=== PATIENT | female | born 1980 | race Caucasian/White ===

== ENCOUNTER 2017-12-14 21:37 | Emergency (ER) | END 2017-12-15 06:28 | disposition home or self-care (01) ==

== ENCOUNTER 2018-11-10 08:19 | Emergency (ER) | payer OTHER ==
[~2018-11-10] VITALS: Ht 162.6 cm; Wt 135.2 kg
[~2018-11-10 08:19] MED LIST: DICL50TA11 PO; GLIP10TA14 PO; HYDR-2059 PO; HYDR25TA6 PO; IBUP800T48 PO; LISI20TA PO; MTF1000T PO; NITR-58 PO; OMEP20CA9 PO; OXYB5TAB7 PO; POLY17PO6 PO; TRAM50TA2 PO; ZOC10 PO
[2018-11-10 08:20] VITALS: Ht 162.6 cm; Wt 135.2 kg
[2018-11-10] MEDS ORDERED: KETOROLAC 30 MG INJ IV STA (09:29)
[2018-11-10] MEDS ORDERED: ONDANSETRON 4 MG INJ IV STA (09:29)
[2018-11-10] MEDS ORDERED: SOD CHLORIDE 0.9% 1,000 ML IV STA (09:29)
[2018-11-10] MEDS ORDERED: ACETAMINOPHEN 500 MG TAB PO STA (09:31)
--- NOTE | 2018-11-10 10:01 | ERD ---
ER Documentation Chief Complaint Chief Complaint RT LOWER ABD PAIN WITH NAUSEA /DIARRHEA X 1 WEEK HPI This is a 38-year-old female presents ED with right lower quadrant abdominal pain that radiates to the low back that is been coming and going for the past week. Patient states that the pain has been worsening. Rates pain at a 6 out of 10. Admits to some nausea and also having diarrhea for the past week. Denies fever, chills, dysuria, hematuria, vaginal pain, vaginal discharge, vomiting, hematemesis, hemoptysis, melena, hematochezia, constipation, chest pain, shortness breath, cough and other symptoms. No known drug allergies. History of gallbladder removed from ROS All systems reviewed and are negative except as per history of present illness. Medications Home Meds Active Scripts Polyethylene Glycol* (Miralax*) 17 Gm Powd.pack, 17 GM PO DAILY, #7 Prov:BRIAN WOLFE DO 12/15/17 Tramadol HCl (Tramadol HCl) 50 Mg Tablet, 50 MG PO Q6, #20 TAB Prov:BRIAN WOLFE DO 12/15/17 Nitrofurantoin Monohyd Macrocr* (Macrobid*) 100 Mg Capsr, 100 MG PO BID for 5 Days, CAP Prov:BETTIE GALLEGOS [employer]CH 04/21/16 Diclofenac Sodium* (Diclofenac Sodium*) 50 Mg Tablet., 50 MG PO BID, #20 TAB Prov:TERRELL INGRAM I. [employer]CH 12/24/15 Omeprazole* (Prilosec*) 20 Mg Capsule., 20 MG PO DAILY for 14 Days, CAP Prov:ÁNGELA RINCON PA-C 05/04/15 Ibuprofen* (Motrin*) 800 Mg Tab, 800 MG PO Q6, #30 TAB Prov:ÁNGELA RINCON PA-C 05/04/15 Reported Medications Simvastatin (Simvastatin) 10 Mg Tablet, 10 MG PO DAILY 03/23/13 Oxybutynin Chloride* (Ditropan*) 5 Mg Tab, 5 MG PO BID 03/23/13 Metformin* (Glucophage*) 1,000 Mg Tablet, 1000 MG PO BID 03/23/13 Lisinopril* (Prinivil*) 20 Mg Tablet, 20 MG PO DAILY 03/23/13 Hydrocodone Bit-Acetaminophen* (Hydrocodone-APAP*) 1 Tab Tablet, 1 TAB PO DAILY PRN 03/23/13 Hydrochlorothiazide (Hydrochlorothiazide) 25 Mg Tablet, 25 MG PO DAILY 03/23/13 Glipizide* (Glipizide*) 10 Mg Tablet, 10 MG PO BID 03/23/13 Allergies Allergies: Coded Allergies: No Known Allergy (Unverified , 12/23/15) PMhx/Soc History of Surgery: Yes (CHOLECYSTECTOMY, c/s) Anesthesia Reaction: No Hx Neurological Disorder: No Hx Respiratory Disorders: No Hx Cardiac Disorders: No Hx Psychiatric Problems: No Hx Miscellaneous Medical Probl: Yes (DM ) Hx Alcohol Use: No Hx Substance Use: No Hx Tobacco Use: No Smoking Status: Never smoker FmHx Family History: No diabetes Physical Exam Vitals Vital Signs Date Temp Pulse Resp B/P (MAP) Pulse Ox O2 O2 Flow FiO2 Time Delivery Rate 11/10/18 98.0 88 18 163/96 99 08:20 (118) Physical Exam Physical Exam Vitals signs: Reviewed by me. General: Well developed, well nourished, in no acute distress. Patient is awake and alert. Head: Normocephalic, atraumatic. Eyes: Normal conjunctiva, Pupils PERRLA, EOM intact grossly ENT: Pharynx is clear, Moist mucous membranes, external ears, nose and mouth normal Neck: Supple, no masses, lymphadenopathy or JVD Respiratory: Clear to auscultation bilaterally with no wheezing, rhonchi, rales, no distress Cardiovascular: RRR, no murmurs, rubs, or gallops Abdominal: Soft, nondistended, no peritoneal signs, no rigidity, no surgical abdomen, bowel sounds present all 4 quadrants, mild tenderness palpation right lower quadrant, nontender to palpation all the quadrants, McBurney's point nontender, no rebound tenderness Back: No midline tenderness. No flank tenderness Neurologic: Alert and oriented, moving all extremities, normal speech, no focal weakness, no cerebellar signs. Normal mentation Skin: warm and dry, No rash Psych: Normal mood Result Diagram: 11/10/18 1000 11/10/18 1000 Results 24 hrs Laboratory Tests Test 11/10/18 09:52 11/10/18 09:55 11/10/18 10:00 Urine Color YELLOW Urine Clarity CLOUDY Urine pH 5.0 Urine Specific Kimberly 1.024 Urine Ketones TRACE mg/dL Urine Nitrite NEGATIVE mg/dL Urine Bilirubin NEGATIVE mg/dL Urine Urobilinogen NEGATIVE mg/dL Urine Leukocyte Esterase 3+ [place]/ul Urine Microscopic RBC 92 /HPF Urine Microscopic WBC > 182 /HPF Urine Squamous Epithelial Cells MODERATE /HPF Urine Bacteria FEW /HPF Urine Mucus FEW /HPF Urine Hemoglobin 3+ mg/dL Urine Glucose NEGATIVE mg/dL Urine Total Protein 1+ mg/dl POC Beta HCG, Qualitative NEGATIVE White Blood Count 14.8 10^3/ul Red Blood Count 4.71 10^6/ul Hemoglobin 12.9 g/dl Hematocrit 40.3 % Mean Corpuscular Volume 85.6 fl Mean Corpuscular Hemoglobin 27.4 pg Mean Corpuscular 32.0 g/dl Hemoglobin Concent Red Cell Distribution Width 13.9 % Platelet Count 546 10^3/UL Mean Platelet Volume 9.0 fl Immature Granulocytes % 0.700 % Neutrophils % 73.4 % Lymphocytes % 19.2 % Monocytes % 4.0 % Eosinophils % 2.2 % Basophils % 0.5 % Nucleated Red Blood Cells % 0.0 /100WBC Immature Granulocytes # 0.100 10^3/ul Neutrophils # 10.8 10^3/ul Lymphocytes # 2.8 10^3/ul Monocytes # 0.6 10^3/ul Eosinophils # 0.3 10^3/ul Basophils # 0.1 10^3/ul Nucleated Red Blood Cells # 0.0 10^3/ul Sodium Level 140 mmol/L Potassium Level 3.7 mmol/L Chloride Level 93 mmol/L Carbon Dioxide Level 31 mmol/L Anion Gap 16 Blood Urea Nitrogen 17 mg/dl Creatinine 0.42 mg/dl Est Glomerular Filtrat > 60 mL/min Rate mL/min Glucose Level 244 mg/dl Calcium Level 9.8 mg/dl Total Bilirubin 0.6 mg/dl Direct Bilirubin 0.00 mg/dl Indirect Bilirubin 0.6 mg/dl Aspartate Amino 28 IU/L Transf (AST/SGOT) Alanine 31 IU/L Aminotransferase (ALT/SGPT) Alkaline Phosphatase 123 IU/L Total Protein 8.0 g/dl Albumin 4.2 g/dl Globulin 3.80 g/dl Albumin/Globulin Ratio 1.10 Lipase 54 U/L Current Medications Medications Dose Sig/Yandel Start Time Status Last (Trade) Ordered Route PRN Stop Time Admin Dose Reason Admin Sodium 1,000 ml @ Q1H STAT 11/10/18 DC 11/10/18 Chloride 1,000 mls/hr IV 09:29 10:08 11/10/18 10:28 Ondansetron 4 mg ONCE STAT 11/10/18 DC 11/10/18 HCl (Zofran IV 09:29 10:08 Inj) 11/10/18 09:32 Ketorolac 30 mg ONCE STAT 11/10/18 DC 11/10/18 Tromethamine IV 09:29 10:08 (Toradol) 11/10/18 09:32 1,000 mg ONCE STAT 11/10/18 DC 11/10/18 Acetaminophen PO 09:31 10:08 (Tylenol 11/10/18 09:32 Tab) Procedures/MDM EKG, MONITORS, & DIAGNOSTIC IMAGING: [place] [address] Radiology Main Line: [phone] DIAGNOSTIC IMAGING REPORT Patient: HELADIO KEENAN : 1980 Age: 38 Sex: F MR #: [id number] DOS: 11/10/18928 Ordering MD: ROOPA ROB PA-C Location: [facility] Room/Bed: PROCEDURE: CT Abdomen and pelvis without contrast. CLINICAL INDICATION: Abdominal pain TECHNIQUE: CT scan of the abdomen and pelvis without contrast was performed on a multidetector high-resolution CT scan. . Coronal and sagittal reformatted images were obtained from the axial source images. Standard CT scan of the abdomen pelvis without contrast protocols were performed. The total exam CTDI equals 23.74 mGy and the total exam DLP equals 1433.27 mGy- cm. One or more of the following dose reduction techniques were used: - Automated exposure control. - Adjustment of the mA and/or kV according to patient size. Use of iterative reconstruction technique. Dicom images are available COMPARISON: CT abdomen pelvis 12/15/2017 FINDINGS: Again noted is a wide mouth midline ventral infra umbilical hernia containing fat and multiple small bowel loops without strangulation. Stomach, small bowel large bowel and appendix are otherwise unremarkable. No evidence of intra-abdominal free air, free fluid, abscesses or lymphadenopathy. Hepatomegaly with diffuse hepatic fatty infiltration. No focal hepatic lesions. Spleen pancreas adrenal glands unremarkable. Status post prior cholecystectomy. No biliary ductal dilation. Kidneys normal in size without calcified calculi hydronephrosis or intra renal masses bilaterally. No ureteral calcified calculi or dilatation. Contracted urinary bladder otherwise unremarkable. Anteverted anteflexed otherwise unremarkable uterus. No adnexal masses. Lung bases unremarkable. Aorta unremarkable. Degenerative changes lower thoracic and lumbar spine without acute osseous findings are osteoblastic/osteolytic lesions. IMPRESSION: 1. No change in the wide mouth midline ventral infra umbilical hernia containing fat and multiple small bowel loops without strangulation or bowel obstruction. 2. No diverticulitis or appendicitis. 3. Hepatomegaly with hepatic fatty infiltration. No focal hepatic lesions. 4. Status post prior cholecystectomy. No biliary ductal dilation. RPTAT:AAJJ Physician Magda Date Time Electronically viewed and signed by Physician Magda on 11/10/2018 11:18 BM/ CC: ROOPA ROB PA-C [id number] LAB INTERPRETATION: CBC shows a mildly elevated WBC of 14.8 Chemistry remarkable for a mildly decreased chloride of 93, anion gap slightly elevated to 16, glucose 244, Liver function test mildly elevated alkaline phosphatase of 123 Lipase shows no evidence of acute pancreatitis Urinalysis remarkable for over 182 WBCs, 92 RBCs, leukocyte esterase 3+, no nitrite ER COURSE: The patient was given Tylenol, Toradol and ZOFRAN The medication was well tolerated and the patient reports improvement in symptoms. The patient was stable throughout ED course. I kept the patient and/or family informed of laboratory and diagnostic imaging results throughout the emergency room course. The patient was promptly evaluated and a treatment plan was devised based on H&P and other data. This plan was discussed with the patient who agreed and had no further questions or concerns prior to discharge. MEDICAL DECISION MAKING: This is a 38-year-old female presents ED with right lower quadrant abdominal pain as well as diarrhea times 1 week. Non- woman presenting with abdominal pain. test is negative. Considered causes of female-specific abdominal pain including pelvic inflammatory disease, tubo-ovarian abscess, [id number]-Uqgvef, and ovarian torsion. Also considered causes of abdominal pain that are not gender-specific (e.g., appendicitis, volvulus, small bowel obstruction, mesenteric adenitis, acute cholecystitis/choledocholithiasis and other biliary pathology, etc.). Patient well-appearing with normal vital signs. No peritoneal signs and abdomen benign on multiple repeat examinations. Pt well hydrated. Urinalysis is remarkable for WBCs, RBCs and 3+ leukocyte esterase. It is likely that patient's lower abdominal pain is being caused by UTI. Will treat patient for UTI. Patient has no CVA tenderness. The otherwise laboratory testing and imaging here reviewed and normal. Patient given strict return precautions for worsening pain, inability to eat/drink, fevers (temperature over 100.4F), or other concerns. Prior to discharge all questions answered. She agrees with treatment plan and understands strict return precautions. Follow-up for repeat abdominal exam within 12 hours. DISPOSITION PLAN: We discussed follow up with the patient's primary care doctor within 24 to 48 hours. Patient counseled regarding my diagnostic impression and care plan. Prior to discharge all questions answered. Pt agrees with treatment plan and understands strict return precautions. Precautionary instructions provided including instructions to return to the ER if not improving or for any worsening or changing symptoms or concerns. SPECIALIST FOLLOW UP RECOMMENDED: None Patient has been advised to follow up with primary care in 1-2 days. Disclaimer: Inadvertent spelling and grammatical errors are likely due to EHR/dictation software use and do not reflect on the overall quality of patient care. Also, please note that the electronic time recorded on this note does not necessarily reflect the actual time of the patient encounter. Blood Pressure Assessment: Patient's blood pressure was elevated (>120/80) but appears stable without evidence of hypertension emergency or urgency. The patient was counseled about the risks of hypertension and urged to pursue outpatient monitoring and therapy within a week with their primary care physician. Departure Diagnosis: Primary Impression: UTI (urinary tract infection) Urinary tract infection type: site unspecified Hematuria presence: without hematuria Qualified Codes: N39.0 - Urinary tract infection, site not specified Additional Impression: Abdominal pain Abdominal location: right lower quadrant Qualified Codes: R10.31 - Right lower quadrant pain Condition: Stable Patient Instructions: Understanding Urinary Tract Infections (UTIs), Abdominal Pain Referrals: [facility] Additional Instructions: Patient advised to return to the ED immediately for new or worsening symptoms. Patient advised to follow up with primary care provider in the next 24-48 hours. Patient verbalized understanding and agrees with treatment plan and course of action. If patient has no primary care they may follow up with one of the community clinics listed on the following page or one of the options listed below [facility] + [facility] [address] [place] [id number] or [facility] [address] [place] [address] or [facility] [address] [place] [address] ROOPA ROB PA-C Nov 10, 2018 10:01
[2018-11-10] MEDS ORDERED: CEPH-443 PO (11:45)
[2018-11-10] MEDS ORDERED: LIDOCAINE 1% (MPF) 5 ML VIAL INJ ONE (12:00)
[2018-11-10] MEDS ORDERED: CEFTRIAXONE 1 GM INJ IM ONE (12:00)
[2018-11-10 13:30] VITALS: BP 149/89; PULSE 78; RESP 20
== END 2018-11-10 13:55 | disposition home or self-care (01) ==
LOC: FTE 08:19
DX: N39.0 Urinary tract infection, site not specified (principal); E11.9 Type 2 diabetes mellitus without complications; Z79.84 Long term (current) use of oral hypoglycemic drugs
CPT/HCPCS: 74176; 80053; 81001; 81025; 83690; 85025; J0696; J1885; J2405; J7030; Z7610; 36415; 96372; 96374; 96375